=== PATIENT | male | born 1995 | race Caucasian/White ===

== ENCOUNTER 2018-02-11 12:03 | Emergency (ER) | payer OTHER ==
[~2018-02-11] VITALS: Ht 154.9 cm; Wt 6.8 kg
== END 2018-02-11 17:21 | disposition home or self-care (01) ==
LOC: ER 12:03
DX: S93.692A Other sprain of left foot, initial encounter (principal); X50.3XXA Overexertion from repetitive movements, initial encounter; Y93.39 Activity, other involving climbing, rappelling and jumping off; Y92.89 Other specified places as the place of occurrence of the external cause; Y99.8 Other external cause status